=== PATIENT | male | born 1955 | race Caucasian/White ===

== ENCOUNTER 2024-06-29 07:38 | Outpatient (CLI) | payer BC, MEDICARE | END 2024-06-29 07:39 | disposition home or self-care (01) | LOC: CSHCP 07:38 | PROVIDERS: ATTEND Internal Medicine | DX: G47.33 Obstructive sleep apnea (adult) (pediatric) (principal); J44.9 Chronic obstructive pulmonary disease, unspecified | CPT/HCPCS: 94060; 94726; 94729; 94760 ==